=== PATIENT | female | born 1935 | race Caucasian/White ===

== ENCOUNTER 2017-01-16 09:24 | Inpatient (IN) ==
[2017-01-11 10:24] LABS: MANUAL DIFF NEEDED? NO
[2017-01-11 12:41] LABS: BASO% 1.2 % (0.0-0.8); EOS# 0.19 X1000 (0.0-0.7); EOS% 4.7 % (0.0-10.0); HEMATOCRIT 34.6 % (37.0-47.0); HEMOGLOBIN 11.4 g/dL (12.0-16.0); IMM GRAN# 0.01 X1000 (0.0-0.04); IMM GRAN% 0.2 % (0.0-0.5); LYMPH# 0.94 X1000 (1.2-3.4); LYMPH% 23.1 % (20.5-51.1); MCH 28.7 PG (27-31); MCHC 32.9 g/dL (33-37); MCV 87.2 FL (81-99); MONO# 0.39 X1000 (0.11-0.59); MONO% 9.6 % (1.7-9.3); MPV 10.3 FL (7.4-10.4); NEUT% 61.2 % (42.2-75.2); PLT 286 X1000 (130-400); RBC 3.97 XMIL (4.2-5.4)
--- NOTE | 2017-01-15 16:25 | HISTORY AND PHYSICAL ---
DATE OF SURGERY: 01/16/2017. CHIEF COMPLAINT: Pelvic organ prolapse. HISTORY: The patient is a 81-year-old female who has been followed by Dr. Forrest Dawson in the [facility]. The patient has been having increasing problems with pelvic organ prolapse for the 6 months prior to our seeing her and she underwent pessary insertion, and has been managed over the last several months with pessary. However, she is upset because she is having a lot of incontinence associated with the pessary being in place and she does not think she is getting any better. She is currently using a Gellhorn because that was all that we could fit her with that would also support her prolapse. She is wishing now to proceed with colpectomy. The risks and benefits of this were explained at length. She understands and wishes to proceed with surgical intervention. She is admitted for colpectomy and midurethral sling with Obtryx. PAST MEDICAL HISTORY: Positive for spinal compression fractures with chronic pain syndrome, hypothyroidism, hypertension, osteoarthritis. PAST SURGICAL HISTORY: Positive for kyphosis of L2, L3 and T12. Right knee replacement. Left hip replacement. Abdominal hysterectomy. Open cholecystectomy. Right knee surgery. Right shoulder surgery. Unilateral salpingo-oophorectomy. Four spinal disc procedures. She is noted to be para 3-0-1-3. ALLERGIES: Darvocet, sulfonamide, Prolia, and codeine. SOCIAL HISTORY: Negative for tobacco, ETOH, or drugs. FAMILY HISTORY: Noncontributory. PHYSICAL EXAMINATION: VITAL SIGNS: BMI is 28. HEENT: Normocephalic, atraumatic. PERRLA. EOMI. No thyromegaly. CARDIOVASCULAR: Regular rate and rhythm without murmur, gallop, or rub. PULMONARY: Clear to auscultation and percussion. ABDOMEN: Soft. GENITOURINARY EXAMINATION: POP-Q stage 4 prolapse, AA +3, BA +5, TVL 9, AP -1, BP is 0, GH is 6, PB is 4. NEUROLOGIC: Afocal. EXTREMITIES: Without clubbing or cyanosis but she does have mild edema. ASSESSMENT AND PLAN: Patient with failed conservative management of her total vaginal prolapse, who is admitted now for colpectomy and midurethral sling with Obtryx. The risks and benefits have been discussed. She understands and wishes to proceed. cc: Terrell Reeder MD
--- NOTE | 2017-01-16 10:08 | EKG Report ---
Test Performed on : 01/16/2017 09:49:59 AM Test Reason : PREOP Blood Pressure : / mmHG Vent. Rate : 062 BPM Atrial Rate : 062 BPM P-R Int : 160 ms QRS Dur : 128 ms QT Int : 462 ms P-R-T Axes : 028 031 027 degrees QTc Int : 468 ms Normal sinus rhythm. with sinus arrhythmia. Right bundle branch block Abnormal ECG No previous ECGs available Confirmed by Dameon Pablo DO ([id number]) on 01/16/2017 6:38:23 PM
[2017-01-16] MEDS ORDERED: KEFZOL 1 GM/D5W 1 GM/50 ML IVPB ONE (10:11)
[2017-01-16] MEDS ORDERED: LR 1,000 ML ONE (10:11)
[2017-01-16] MEDS ORDERED: SODIUM CHLORIDE 0.9% ONE (11:38)
[2017-01-16] MEDS ORDERED: D10W 1,000 ML ONE (11:38)
[2017-01-16] MEDS ORDERED: MARCAINE 0.25% PF/EPI 1:200,000 ONE (11:39)
[2017-01-16] MEDS ORDERED: XYLOCAINE-MPF 2% ONE (11:40)
[2017-01-16] MEDS ORDERED: DIPRIVAN 1% ONE (11:40)
[2017-01-16] MEDS ORDERED: VERSED ONE (11:56)
[2017-01-16] MEDS ORDERED: LASIX ONE (12:59)
[2017-01-16] MEDS ORDERED: FENTANYL ONE (13:19)
[2017-01-16] MEDS ORDERED: ZOFRAN ODT PO PRN (14:18)
--- NOTE | 2017-01-16 14:31 | OPERATIVE NOTE ---
PROCEDURE DATE: 01/16/2017 PREOPERATIVE DIAGNOSIS: Pelvic organ prolapse. POSTOPERATIVE DIAGNOSIS: Pelvic organ prolapse. PROCEDURE: Colpectomy and mid urethral sling with tricks Obtryx. SURGEON: Terrell Reeder MD. ANESTHESIA: General. ESTIMATED BLOOD LOSS: 25 mL. HISTORY: The patient is a 81-year-old female who has been followed by Dr. Forrest Dawson over in the [place] area, who has been having increasing problems with symptomatic pelvic organ prolapse. We have been managing her initially with a ring pessary and then a Gellhorn pessary, however she is having difficulty with the Gellhorn, having problems with incontinence and feels like things are still falling out and she wished to proceed to surgical intervention. OPERATIVE FINDINGS: Patient is found have POP-Q stage III prolapse. Normal bladder on cystoscopy after completion of the procedure. OPERATIVE PROCEDURE: Patient was taken to the operating room, placed in supine position. After adequate general anesthesia obtained she as placed in candy cane stirrups. The vagina and perineum prepped and draped in the usual fashion. At this time, the defect was identified. The pessary had already been removed and there are multiple erosions in the posterior compartment from the Gellhorn pessary. So we had a scant amount of bleeding from vaginal mucosa just from removal of the pessary. We initially started in the anterior compartment. We grasped the apex with Allis clamps x2, and did a split-thickness dissection through hydrodissection using 0.25% Marcaine with epinephrine. We marked our anterior compartments body on the right and left-hand side and then dissected out both of these quadrants of the vaginal mucosa. When we turned our attention towards the posterior compartment because of the erosions from the pessary it was very difficult to do this. We did use the same dilutant to inject again and create the hydrodissection. However the erosion changed the thickness of dissection at multiple sites we ended up having to take most of the posterior compartment mucosa off in a bitmeal fashion. After completion of all this we then began our pursestring closure. We had a little bit of bleeding on the right-hand side and a couple [id number] sutures were placed in this area to provide hemostasis. We did concentric pursestring closure until we had involution of the defect. We then closed anterior to posteriorly with a 0 Vicryl ligature in a [id number] fashion and interrupted fashion as well. After completion of this, decision was made to proceed towards sling placement. Urethra was grasped proximally and distally and again approximately 5 mL of the same dilutant was injected for hydrodissection. A sagittal incision was made. Metzenbaum scissors were utilized to dissect up towards the ischial pubic ramus. Based on the bony landmarks and the insertion of the adductor longus on each side. A stab incision was initially made on the left-hand side and the halo device was introduced through this incision into the tobacco packing machine operator's finger. Mesh was attached to it, it was retracted back through the skin. This was performed on the contralateral side in a similar fashion. Tomas catheter had already been removed. Cystoscope was introduced and bladder was drained of all urine. The bladder was filled to approximately 300 mL with D10. Both ureteral orifices were refluxing urine. There were no abnormalities in the bladder whatsoever. Urethra was also found to be within normal limits. Cystoscope was removed and Mini clamp was placed the mid urethral position. The tape was brought up with Mini clamp, blue tag was excised and the sheaths were easily removed. There is no tension on the mesh whatsoever. Mid urethral incision was closed in a running 2.0 Vicryl ligature. Evaluation of the perineum, I felt that we had good support in this area and so a perineum seal was not needed. She had very good support in all compartments. The decision was made to terminate the procedure. All equipment was removed. The sponge count, instrument count, needle count was correct x3. The patient was taken out of the [facility]. She was awakened, taken to the recovery room with vital signs stable. cc: Terrell Reeder MD
[2017-01-16] MEDS: NORCO-5 PO SCH ×4 (14:49→21:00)
[2017-01-16] MEDS: LR 1,000 ML IV SCH ×3 (15:08→20:58)
[2017-01-16] MEDS: TORADOL IV SCH ×2 (16:30→16:57)
--- NOTE | 2017-01-16 18:23 | PROGRESS NOTE ---
DATE: 01/16/2017 TIME: 6 p.m. SUBJECTIVE: Patient is alert and oriented x3. Her son and [id number] are in the room with her. OBJECTIVE: Vital signs: Afebrile. Vital signs stable. : Scant bleeding. Urine output is clear and adequate. ASSESSMENT AND PLAN: Routine postoperative care from colpectomy and midurethral sling. We will plan on discontinuation of Tomas in the a.m. and begin voiding trial. She will be discharged in the a.m. after completion of the voiding trial. cc: Terrell Reeder MD
[2017-01-16] MEDS: PERIDEX MT SCH (20:58)
[2017-01-16] MEDS: LIBRAX PO SCH (20:59)
[2017-01-16] MEDS: NEURONTIN PO SCH (20:59)
[2017-01-16] MEDS ORDERED: FLEXERIL PO SCH (21:00)
[2017-01-16] MEDS ORDERED: COZAAR PO SCH (21:00)
[2017-01-16] MEDS ORDERED: DESYREL PO SCH (21:00)
[2017-01-16] MEDS: COLACE PO SCH (21:00)
[2017-01-17] MEDS: TORADOL IV SCH ×2 (00:15→11:20)
[2017-01-17] MEDS: NORCO-5 PO SCH (02:22)
[2017-01-17] MEDS ORDERED: NORCO-5 PO PRN (03:24)
--- NOTE | 2017-01-17 07:50 | DISCHARGE SUMMARY ---
ADMISSION DATE: 01/16/2017 DISCHARGE DATE: 01/17/2017 PRINCIPAL DIAGNOSIS: Symptomatic pelvic organ prolapse. POSTOPERATIVE DIAGNOSIS: Symptomatic pelvic organ prolapse. HISTORY: The patient is a 81-year-old female referred to me by Dr. Forrest Dawson in [place], who is having worsening problems with pelvic organ prolapse. She had been managed conservatively with pessary for a prolonged period of time, however was beginning to have difficulties even with the pessary and wished to proceed to surgical intervention. PROCEDURE: Colpectomy and mid urethral sling with Obtryx. HOSPITAL COURSE: The patient underwent the above-stated procedure. Blood loss at time was 25 mL. Her postoperative course has been uncomplicated. She is currently undergoing voiding trial and will be discharged home after completion of this. The patient was discharged home with instructions for follow up in 3 weeks. DISCHARGE MEDICATIONS: Colace. DIET: The patient was instructed on regular diet and decreased activity. cc: Terrell Reeder MD
[2017-01-17] MEDS ORDERED: SYNTHROID PO SCH (09:00)
[2017-01-17] MEDS ORDERED: ZYRTEC PO SCH (09:00)
[2017-01-17] MEDS ORDERED: MAG-OX PO SCH (09:00)
[2017-01-17] MEDS ORDERED: VITAMIN D PO SCH (09:00)
[2017-01-17] MEDS: NEURONTIN PO SCH (11:19)
[2017-01-17] MEDS: COLACE PO SCH (11:19)
[2017-01-17] MEDS: LIBRAX PO SCH (11:20)
[2017-01-17] MEDS: PERIDEX MT SCH (11:20)
[2017-01-17 11:53] VITALS: BP 162/74
== END 2017-01-17 12:36 | disposition home or self-care (01) ==
LOC: 4N 09:24 → OR 09:24 → OBSVTOIN 13:34
PROVIDERS: ADMIT Obstetrics & Gynecology; ATTEND Obstetrics & Gynecology